=== PATIENT | male | born 1965 | race Caucasian/White ===

== ENCOUNTER → 2017-08-26 | Outpatient (CLI) | payer OTHER ==
[~2017-08-26] MED LIST: ALKA-SELTZER P1 EAC2 PO; ASPIRIN EC325 MG PO; ENDOCET 5-3251 EACH PO; MOTRIN800 MG PO; PRILOSEC20 MG PO; TYLENOL EXTRA500 MG PO; ZOCOR20 MG PO
== END | disposition home or self-care (01) ==
LOC: CDC 15:19
DX: Z01.810 Encounter for preprocedural cardiovascular examination (principal); M77.12 Lateral epicondylitis, left elbow
CPT/HCPCS: 93000